=== PATIENT | male | born 1980 | race African-American/Black ===

== ENCOUNTER → 2019-10-05 | Outpatient (CLI) | payer OTHER | LOC: SJCVCIMAG 12:31 | PROVIDERS: ATTEND Internal Medicine Cardiovascular Disease | DX: I11.9 Hypertensive heart disease without heart failure (principal); I35.8 Other nonrheumatic aortic valve disorders ==

== ENCOUNTER 2020-01-28 15:07 | Emergency (ER) | payer OTHER ==
[~2020-01-28] VITALS: Ht 172.7 cm; Wt 84.8 kg
[2020-01-28 16:46] LABS: URINE BILIRUBIN NEGATIVE (Negative); URINE BLOOD NEGATIVE (Negative); URINE CLARITY CLEAR; URINE COLOR YELLOW; URINE GLUCOSE-RANDOM* NEGATIVE (Negative); URINE KETONES NEGATIVE (Negative); URINE LEUKOCYTES-REFLEX NEGATIVE (Negative); URINE NITRITE-REFLEX NEGATIVE (Negative); URINE PROTEIN (DIPSTICK) NEGATIVE (Negative); URINE SPECIFIC GRAVITY 1.015 (1.005-1.035); URINE UROBILINOGEN 0.2 E.U./dl (0.2-1.0)
[2020-01-28 16:55] LABS: AMP/METHAMP Negative (Negative); BARBITURATES Negative (Negative); BENZODIAZEPINES Negative (Negative); COCAINE Negative (Negative); METHADONE Negative (Negative); OPIATES Negative (Negative); PCP Negative (Negative)
[2020-01-28 17:32] LABS: ABSOLUTE NEUTROPHILS 2.6 thou/uL (1.4-8.2); BASOPHILS 0.8 % (0.0-2.0); EOSINOPHILS 1.8 % (0.0-3.0); HEMOGLOBIN 11.8 gm/dL (14.0-18.0); LYMPHOCYTES 32.4 % (24.0-44.0); MCHC 33.7 g/dL (28.0-37.0); MCV 86.2 fL (80.0-100.0); PLATELET COUNT 277 thou/uL (150-400); RBC 4.06 mil/uL (4.50-6.00); RDW 15.6 % (10.5-14.5); WBC 4.6 thou/uL (4.0-11.0)
[2020-01-28] MEDS ORDERED: BYSTOLIC20 MG PO (17:37)
[2020-01-28] MEDS ORDERED: EDARBYCLOR 40-1 EAC1 PO (17:37)
[2020-01-28 17:41] LABS: ANION GAP 5 mmol/L (7-16); BUN 16 mg/dL (7-18); CALCIUM 9.6 mg/dL (8.5-10.1); CHLORIDE 98 mmol/L (98-107); CO2 31 mmol/L (21-32); CREATININE 1.3 mg/dL (0.7-1.3); GLUCOSE 93 mg/dL (74-106); POTASSIUM 4.1 mmol/L (3.5-5.1); SODIUM 134 mmol/L (136-145)
[2020-01-28 17:48] LABS: ALBUMIN 4.2 g/dL (3.4-5.0); MAGNESIUM 2.2 mg/dL (1.8-2.4); PHOSPHORUS 4.6 mg/dL (2.6-4.7); SALICYLATE < 2.8 mg/dL (2.8-20.0); SGOT 22 U/L (15-37); SGPT 41 U/L (16-63); TOTAL BILIRUBIN 0.4 mg/dL (0.2-1.0); TOTAL PROTEIN 8.1 g/dL (6.4-8.2)
[2020-01-28 18:26] VITALS: BP 106/59
--- NOTE | 2020-01-29 07:18 | EKG ---
[facility] [place] [address] ELECTROCARDIOGRAM REPORT Name: NEWELLKODY D Room #: [place]. [facility]#: [id number] Admission: 01/28/20 Attend Phys: Discharge: 01/28/20 Date of : 82 Report #: [id number] [facility] ED Test Date: 2020-01-28 Test Time: 18:20:12 Pat Name: KODY NEWELL Department: Room: Gender: M Government Employee: WILLIE : 1980 Requested By: Kenneth Rosales Order Number: [id number] MD: Anmol Bustos Measurements Intervals [place] Rate: 54 P: -79 CO: 151 QRS: -8 QRSD: 94 T: QT: 411 QTc: 390 Interpretive Statements Sinus or ectopic atrial rhythm Nonspecific T abnormalities, lateral leads ST elev, probable normal early repol pattern No previous ECG available for comparison Electronically Signed On 01-29-2020 7:18:01 [employer]REIGHT MANAGER by Anmol uBstos [email or web address] <ELECTRONICALLY SIGNED> By: Anmol Bustos MD, [facility] 01/29/20 0718 182 19 Anmol Bustos MD, FACC /EPI
== END 2020-01-28 18:27 | disposition home or self-care (01) ==
LOC: ER 15:07
PROVIDERS: Emergency Medicine
DX: G40.209 Localization-related (focal) (partial) symptomatic epilepsy and epileptic syndromes with complex partial seizures, not intractable, without status epilepticus (principal); I10 Essential (primary) hypertension; Z79.899 Other long term (current) drug therapy

== ENCOUNTER → 2020-02-16 | Outpatient (CLI) | payer OTHER ==
[~2020-02-16] MED LIST: BYSTOLIC20 MG PO; EDARBYCLOR 40-1 EAC1 PO
--- NOTE | ~2020-02-16 | EEG ---
[facility] [place] [address] ELECTROENCEPHALOGRAM Name: KODY NEWELL Britton Room #: REG Regina MSandra.#: [id number] Admission: 02/16/20 Attend Phys: Shannon Cote DO Discharge: Date of : 82 Report #: [id number] THIS REPORT FOR: //name// DATE OF SERVICE: 02/16/2020 This patient is being evaluated for seizure. EEG was done by placing the electrode by standard 10-20 system of electrode placement. Both referential and sequential montages were used for recording. Background activity in this patient's EEG is about 11 Hz and 40 microvolt. The patient became drowsy that is associated with bilateral slowing. Photic stimulation is unremarkable. Throughout the record, no active epileptiform activity was noticed. IMPRESSION: This patient's EEG is within normal limits. It might be mentioned that EEG can be normal in a patient with seizure disorder. Thank you very much for this referral. By: [id number] Gildardo Becerril MD /nt
== END ==
LOC: NEURO 09:59
PROVIDERS: ATTEND Psychiatry & Neurology Neurology
DX: G40.909 Epilepsy, unspecified, not intractable, without status epilepticus (principal)

== ENCOUNTER 2020-07-18 09:35 | Inpatient (IN) | payer OTHER ==
[~2020-07-18] VITALS: Ht 170.2 cm; Wt 93.0 kg
[2020-07-18 09:35] VITALS: BP 135/89
[2020-07-18] MEDS ORDERED: NORVASC5 MG PO (09:40)
[2020-07-18 10:20] LABS: HEMATOCRIT 40.3 % (42.0-52.0); HEMOGLOBIN 13.1 gm/dL (14.0-18.0); MCH 28.3 pg (26.0-34.0); MCHC 32.4 g/dL (28.0-37.0); MCV 87.3 fL (80.0-100.0); RBC 4.61 mil/uL (4.50-6.00); RDW 14.1 % (10.5-14.5); WBC 4.7 thou/uL (4.0-11.0)
[2020-07-18 10:30] LABS: CALCIUM 8.8 mg/dL (8.5-10.1); CREATININE 1.5 mg/dL (0.7-1.3)
[2020-07-18 10:37] LABS: ALBUMIN 4.1 g/dL (3.4-5.0); TOTAL BILIRUBIN 0.4 mg/dL (0.2-1.0)
[2020-07-18 12:43] VITALS: BP 126/73
[2020-07-18 13:31] VITALS: BP 133/83
[2020-07-18 13:50] VITALS: BP 117/82
[2020-07-18 14:04] LABS: AMP/METHAMP Negative (Negative); BARBITURATES Negative (Negative); BENZODIAZEPINES Negative (Negative); COCAINE Negative (Negative); METHADONE Negative (Negative); OPIATES Negative (Negative); PCP Negative (Negative)
[2020-07-18 15:37] VITALS: BP 113/82
[2020-07-18 16:22] LABS: FOLIC ACID 10.2 ng/mL (8.6-58.9)
[2020-07-18 19:23] VITALS: BP 122/82
--- NOTE | 2020-07-18 19:47 | NUR ---
PATIENT ADMIT TO UNIT FROM ER. A/O X4 DROWSY BUT AROUSBLE. ON SEIZURE PROCUTION. VSS. WILL KEEP MONITOR.
[2020-07-19 04:01] VITALS: BP 108/71
[2020-07-19 06:41] LABS: CALCIUM 8.1 mg/dL (8.5-10.1); CREATININE 1.3 mg/dL (0.7-1.3)
[2020-07-19 07:22] VITALS: BP 110/75
--- NOTE | 2020-07-19 08:45 | NUR ---
VARIANCE NOTE: ORDERS RECEIVED FOR O.T. EVAL AND TREAT INDICATED. MET WITH PT, WHO POLITELY DECLINED AN O.T. EVAL AT THIS TIME DUE TO INDEPENDENCE WITH ALL ADLS/IADLS AND UP AD ABDOUL IN ROOM, WITH NO CONCERNS. DISCUSSED ANY CONCERNS MOVING FORWARD, ESPECIALLY RELATING TO NO DRIVING FOR 6 MONTHS. PT STATES HAS BEEN NOT DRIVING SINCE SEIZURES IN JANUARY. DECLINED ANY OTHER CONCERNS. ENCOURAGED TO CONTACT RN TO ALERT THERAPY DEPARTMENT IF ANY CONCERNS ARISE. WILL D/C PT FROM O.T. [place] AT THIS TIME. THANK YOU.
[2020-07-19] MEDS ORDERED: KEPPRA 500 MG500 M1 PO (09:20)
[2020-07-19 09:46] VITALS: BP 110/75
--- NOTE | 2020-07-19 11:26 | NUR ---
ASSUMED PATIENT CARE AT 0700. A/O X4. NO SEIZURE. PROGRESSING TOWARDS POC GOALS. DC TO HOME.
--- NOTE | 2020-07-19 11:56 | NUR ---
ORDERS RECEIVED FOR PT EVAL AND TREAT. Pt ADMITTED W/ PARTIAL COMPLEX SEIZURE. HAS HX OF SEIZURES. Pt HAS BEEN UP AD ABDOUL WHICH WAS CONFIRMED W/ Pt AND RN. LIVES W/ AND DOESN'T USE AD. REPORTED NO MOBILITY ISSUES WHILE HERE. Pt POLITELY DECLINING PT NEEDS AT THIS TIME. ACUTE PT TO SIGN OFF.
--- NOTE | 2020-07-19 14:53 | NUR ---
SW received consult. SW reviewed chart and spoke with nursing and attending physician. Pt admitted due to seizures. Neuro consulted. Pt was discharged home this morning, prior to SW visit. No discharge needs identified. SW is available to assist should needs arise.
--- NOTE | 2020-07-21 14:16 | HC ---
[facility] [place] [address] CONSULTATION Name: NEWELLKODY Britton Room #: 354-P [facility] IN M.R.#: [id number] Admission: 07/18/20 Attend Phys: Torin Mahoney MD Discharge: 07/19/20 Date of : 82 Report #: [id number] THIS REPORT FOR: cc: Rustam Nolasco Louis D. DO Khosla, Parveen K. MD ~ DOC #: [id number] Gildardo Becerril MD DATE OF SERVICE: 07/18/2020 HISTORY OF PRESENT ILLNESS: This is a 40-year-old male patient who was seen by me for seizure. I reviewed the patient's prior records. I talked to the Emergency Room physician. I talked to the patient's and brother. It looks like the patient is having symptom of partial complex seizures. He saw Dr. Cote and he said he had an MRI done here. I cannot find that MRI. Today, he had what looks like a typical grand mal seizure with tongue biting and urinary incontinence. He was postictal, but quickly returned back to his baseline, in spite of being given Ativan. He looks back to his baseline. REVIEW OF SYSTEMS: Indicate that he is otherwise pretty healthy, but is having these episodes of seizure-like activity. He does have a history of hypertension. He was instructed to make an appointment with an epileptologist, but he has not done yet. I understand Dr. Cote has given him the option of either going on anticonvulsant or going to an epileptologist or doing both and he has picked up seeing an epileptologist. He smokes marijuana, but he says he never does any hard drugs. Rest of the 14-point review of systems is unremarkable. He has a desk job. PAST MEDICAL HISTORY: Positive for what looks like a partial complex seizure. FAMILY HISTORY: Positive for sarcoidosis in mother. SOCIAL HISTORY: He smokes marijuana. He drinks alcohol, but he says when he drink alcohol. He drinks 1 alcoholic drink at the most. His examinations indicate he is alert, responsive, somewhat slow, but can tell me what month or date, who the president is. Cranial nerve examination II-XII is unremarkable. Neuromuscular examination as checked sensation, reflexes and tone is unremarkable. He has no cerebellar sign. I still could not look at the patient's fundus. There is no meningeal sign in this patient. Cardiorespiratory examination is unremarkable. VITAL SIGNS: His blood pressure is 133/83, respirations 16, pulse is 82. LABORATORY DATA: Indicated normal white count in spite of his seizure. His GFR is 63. His CPK is high at 855. He had a CT in January 2020 [place] [address] CONSULTATION Name: KODY NEWELL Room #: 354-P [facility] IN M.R.#: [id number] Admission: 07/18/20 Attend Phys: Torin Mahoney MD Discharge: 07/19/20 Date of : 82 Report #: [id number] having these spells and he says he had an MRI since then. I could not find that MRI. He is a well-built individual who does not have any dysmorphic features of eyes, ears and face. IMPRESSION: The patient's clinical presentation is pretty typical for seizure. He has increased CPK, tongue biting and urinary incontinence and it should be presumed that is a seizure. That will make his prior episode as a partial seizure. His EEG is still unremarkable. RECOMMENDATIONS: 1. Keppra. 2. He needs to take seizure precautions and he cannot drive for 6 months. 3. He does have history of sarcoidosis in the family. 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 If he had an MRI with and without contrast and there were no meningeal enhancement that will make it less likely. If I can find the MRI, I would likely do the MRI with and without contrast. His GFR is normal, but still there is some chance of allergic reaction as well as irreversible dermatological reaction. I discussed that aspect with him. He wants to proceed with EEG and want me to find his MRI, which I will try if I can find it. We will proceed with MRI with and without contrast. He need to take seizure precautions and he cannot drive at least for 6 months. Thank you very much for this referral and if you have any questions, please feel free to contact me. Gildardo Becerril MD PK/MURALI <ELECTRONICALLY SIGNED> By: Gildardo Becerril MD 07/21/20 1416 [id number] Gildardo Becerril MD /nt
== END 2020-07-19 10:44 | disposition home or self-care (01) | DRG 101 ==
LOC: ER 09:35 → EROBS 12:32 → 3W 12:32
PROVIDERS: Nurse Practitioner; Student in an Organized Health Care Education/Training Program; ADMIT Internal Medicine; ATTEND Internal Medicine
DX: R56.9 Unspecified convulsions (principal); N17.9 Acute kidney failure, unspecified; M62.82 Rhabdomyolysis; I10 Essential (primary) hypertension; Z79.899 Other long term (current) drug therapy; Z82.49 Family history of ischemic heart disease and other diseases of the circulatory system
CPT/HCPCS: 10879

== ENCOUNTER → 2021-01-31 | Outpatient (CLI) | payer OTHER ==
[~2021-01-31] MED LIST changes: +KEPPRA 500 MG500 M1 PO; +NORVASC5 MG PO
== END ==
LOC: SJCVCIMAG 09:36
PROVIDERS: ATTEND Internal Medicine Cardiovascular Disease
DX: I11.9 Hypertensive heart disease without heart failure (principal)